=== PATIENT | female | born 2000 | race Caucasian/White ===

== ENCOUNTER 2019-03-27 23:19 | Emergency (ER) | payer OTHER ==
[2019-03-27] MEDS ORDERED: PROP1VIA IV (23:31)
[2019-03-27] MEDS ORDERED: CITA-155 PO (23:31)
--- NOTE | 2019-03-27 23:31 | ER Report ---
History and Physical Time Seen By MD: 23:31 Hx. of Stated Complaint: BACK AND ABDOMINAL PAIN SINCE YESTERDAY. PT RUBS FLANK AREA WHEN ASKED ABOUT THE PAIN. NO HX OF UTI OR KIDNEY STONES HPI/ROS CHIEF COMPLAINT: Back and abdominal pain HISTORY OF PRESENT ILLNESS: This is a 18-year-old female. She's been having some pain that started yesterday, mainly in her back and flanks, now seems to radiate into her abdomen somewhat worse in the right lower back and right abdomen. The only thing that seemed to make the pain better was a warm blanket. Any movement seems to make it worse. Does not seem to change with eating or drinking although she has poor appetite. No nausea or vomiting. Normal bowels without diarrhea, blood or melena. Denies any dysuria, frequency, or urgency. Last menstrual cycle was about a week or 2 ago, normal for her. She is feeling some diffuse achiness and hypersensitivity of her skin throughout her body with all this. She does have a fever here but has not noted any fevers or chills at home today. No cough or shortness of breath. Denies any chest pain. Sometimes the pain makes it hard for her to catch her breath. No skin rashes. No runny nose, sore throat or upper respiratory symptoms. Allergies: Coded Allergies: No Known Drug Allergies (Unverified , 03/27/19) Home Meds Active Scripts Ondansetron 4 Mg Odt (ONDANSETRON 4 MG ODT) 4 Mg Tab.rapdis, 4 MG PO Q6H PRN for NAUSEA/VOMITING, #10 TAB 0 Refills Prov:LAW HUBER MD 03/28/19 Hydrocodone Bit/Acetaminophen (HYDROCODON-ACETAMINOPHEN 5-325) 1 Each Tablet, 1 EACH PO Q4H PRN for PAIN, #8 TAB 0 Refills Prov:LAW HUBER MD 03/28/19 Reported Medications Citalopram Hydrobromide (CELEXA) 10 Mg Tablet, 10 MG PO QDAY, #5 TAB 03/27/19 Propranolol Hcl (PROPRANOLOL HCL) 1 Mg/1 Ml Vial, 1 MG IV, VIAL 03/27/19 Reviewed Nurses Notes: Yes Constitutional Vital Sign - Last 24 Hours 03/27/19 03/27/19 03/27/19 03/27/19 23:19 23:24 23:28 23:29 Temp 101.2 Pulse ??? 117 119 Resp 12 B/P (MAP) 137/96 137/96 (110) Pulse Ox 91 92 03/27/19 03/27/19 03/27/19 03/27/19 23:30 23:39 23:49 23:59 Pulse 112 104 ??? B/P (MAP) 137/86 (103) Pulse Ox 94 94 03/28/19 03/28/19 03/28/19 03/28/19 00:00 00:05 00:22 00:30 Pulse ??? B/P (MAP) 123/78 (93) ???/??? (1665) O2 Flow Rate 10.0 03/28/19 03/28/19 03/28/19 03/28/19 00:35 00:37 00:50 01:00 Pulse ??? 103 B/P (MAP) 124/80 (95) 123/82 (96) Pulse Ox 89 03/28/19 03/28/19 01:05 01:20 Pulse ??? 91 Pulse Ox 91 94 Intake and Output 03/27/19 03/27/19 03/28/19 15:00 23:00 07:00 Intake Total 1000 ml Balance 1000 ml Physical Exam General Appearance: The patient is alert. No acute distress. Nontoxic in appearance. Eyes: Pupils are equal, round. No pallor, injection or icterus. ENT: Mucous membranes are moist. Normal oral mucosa. Posterior oropharynx is normal. Neck: Supple and non tender. Respiratory: Lungs are clear to auscultation. Cardiovascular: Regular rate and rhythm. No murmurs, gallops or rubs. Normal capillary refill. Gastrointestinal: Abdomen is soft, discomfort throughout somewhat worse in the right lower abdomen. Nondistended. No rebound or guarding. No masses or organomegaly. Normal active bowel sounds. No costovertebral angle tenderness with percussion, but does have pain with palpation throughout the back, worse across the lumbar spine, somewhat worse on the right side. Neurological: Alert and oriented x3. No focal neurologic deficits Skin: Warm and dry. No rashes. DIFFERENTIAL DIAGNOSIS: After history and physical exam, differential diagnosis was considered for abdominal pain including but not limited to appendicitis, colitis, gastroenteritis, and urinary tract infection. Less likely cholecystitis. Medical Decision Making Data Points Result Diagram: 03/27/19 2359 03/27/19 2359 Laboratory Hematology Test 03/27/19 23:24 03/27/19 23:59 Urine Color Yellow Urine Clarity Clear Urine pH 5.0 pH (4.8-9.5) Urine Specific [place] 1.027 Urine Protein Negative mg/dL (NEGATIVE) Urine Glucose (UA) Negative mg/dL (NEGATIVE) Urine Ketones Negative mg/dL (NEGATIVE) Urine Blood Negative (NEGATIVE) Urine Nitrite Negative (NEGATIVE) Urine Bilirubin Negative (NEGATIVE) Urine Urobilinogen 2.0 mg/dL (0.2-1.9) Urine Leukocyte Esterase Negative (NEGATIVE) Urine RBC 3 /HPF (0-2/HPF) Urine WBC 4 /HPF (0-5/HPF) Urine Squamous Epithelial Cells Many /LPF (</=FEW) Urine Bacteria Few /HPF (NONE-FEW) Urine Mucus Few /HPF (NONE-FEW) Red Blood Count 4.97 M/uL (4.17-5.56) Mean Corpuscular Volume 84.5 fL (80.0-96.0) Mean Corpuscular Hemoglobin 28.8 pg (26.0-33.0) Mean Corpuscular Hemoglobin Concent 34.0 g/dL (32.0-36.0) Red Cell Distribution Width 12.7 % (11.5-14.5) Mean Platelet Volume 8.0 fL (7.2-11.1) Neutrophils (%) (Auto) 73.9 % (39.4-72.5) Lymphocytes (%) (Auto) 14.4 % (17.6-49.6) Monocytes (%) (Auto) 10.8 % (4.1-12.4) Eosinophils (%) (Auto) 0.2 % (0.4-6.7) Basophils (%) (Auto) 0.7 % (0.3-1.4) Nucleated RBC Relative Count (auto) 0.1 /100WBC Neutrophils # (Auto) 2.2 K/uL (2.0-7.4) Lymphocytes # (Auto) 0.4 K/uL (1.3-3.6) Monocytes # (Auto) 0.3 K/uL (0.3-1.0) Eosinophils # (Auto) 0.0 K/uL (0.0-0.5) Basophils # (Auto) 0.0 K/uL (0.0-0.1) Nucleated RBC Absolute Count (auto) 0.00 K/uL Sodium Level 137 mmol/L (137-145) Potassium Level 3.6 mmol/L (3.5-5.0) Chloride Level 106 mmol/L (98-107) Carbon Dioxide Level 23 mmol/L (22-31) Blood Urea Nitrogen 9 mg/dl (7-18) Creatinine 0.90 mg/dl (0.52-1.04) Glomerular Filtration Rate Calc > 60.0 Random Glucose 109 mg/dl (75-110) Calcium Level 9.1 mg/dl (8.4-10.2) Total Bilirubin 0.5 mg/dl (0.2-1.3) Aspartate Amino Transf (AST/SGOT) 25 U/L (0-35) Alanine Aminotransferase (ALT/SGPT) 27 U/L (0-56) Alkaline Phosphatase 72 U/L (0-126) Total Protein 7.3 g/dl (6.3-8.2) Albumin 4.3 g/dl (3.5-5.0) Amylase Level 71 U/L (0-110) Lipase 79 U/L (23-300) Human Chorionic Gonadotropin, Qual Negative (NEGATIVE) Chemistry Test 03/27/19 23:24 03/27/19 23:59 Urine Color Yellow Urine Clarity Clear Urine pH 5.0 pH (4.8-9.5) Urine Specific [place] 1.027 Urine Protein Negative mg/dL (NEGATIVE) Urine Glucose (UA) Negative mg/dL (NEGATIVE) Urine Ketones Negative mg/dL (NEGATIVE) Urine Blood Negative (NEGATIVE) Urine Nitrite Negative (NEGATIVE) Urine Bilirubin Negative (NEGATIVE) Urine Urobilinogen 2.0 mg/dL (0.2-1.9) Urine Leukocyte Esterase Negative (NEGATIVE) Urine RBC 3 /HPF (0-2/HPF) Urine WBC 4 /HPF (0-5/HPF) Urine Squamous Epithelial Cells Many /LPF (</=FEW) Urine Bacteria Few /HPF (NONE-FEW) Urine Mucus Few /HPF (NONE-FEW) White Blood Count 3.0 k/uL (4.5-11.0) Red Blood Count 4.97 M/uL (4.17-5.56) Hemoglobin 14.3 g/dL (12.0-16.0) Hematocrit 42.0 % (34.0-47.0) Mean Corpuscular Volume 84.5 fL (80.0-96.0) Mean Corpuscular Hemoglobin 28.8 pg (26.0-33.0) Mean Corpuscular Hemoglobin Concent 34.0 g/dL (32.0-36.0) Red Cell Distribution Width 12.7 % (11.5-14.5) Platelet Count 149 K/uL (150-450) Mean Platelet Volume 8.0 fL (7.2-11.1) Neutrophils (%) (Auto) 73.9 % (39.4-72.5) Lymphocytes (%) (Auto) 14.4 % (17.6-49.6) Monocytes (%) (Auto) 10.8 % (4.1-12.4) Eosinophils (%) (Auto) 0.2 % (0.4-6.7) Basophils (%) (Auto) 0.7 % (0.3-1.4) Nucleated RBC Relative Count (auto) 0.1 /100WBC Neutrophils # (Auto) 2.2 K/uL (2.0-7.4) Lymphocytes # (Auto) 0.4 K/uL (1.3-3.6) Monocytes # (Auto) 0.3 K/uL (0.3-1.0) Eosinophils # (Auto) 0.0 K/uL (0.0-0.5) Basophils # (Auto) 0.0 K/uL (0.0-0.1) Nucleated RBC Absolute Count (auto) 0.00 K/uL Glomerular Filtration Rate Calc > 60.0 Calcium Level 9.1 mg/dl (8.4-10.2) Total Bilirubin 0.5 mg/dl (0.2-1.3) Aspartate Amino Transf (AST/SGOT) 25 U/L (0-35) Alanine Aminotransferase (ALT/SGPT) 27 U/L (0-56) Alkaline Phosphatase 72 U/L (0-126) Total Protein 7.3 g/dl (6.3-8.2) Albumin 4.3 g/dl (3.5-5.0) Amylase Level 71 U/L (0-110) Lipase 79 U/L (23-300) Human Chorionic Gonadotropin, Qual Negative (NEGATIVE) Urinalysis Test 03/27/19 23:24 Urine Color Yellow Urine Clarity Clear Urine pH 5.0 pH (4.8-9.5) Urine Specific [place] 1.027 Urine Protein Negative mg/dL (NEGATIVE) Urine Glucose (UA) Negative mg/dL (NEGATIVE) Urine Ketones Negative mg/dL (NEGATIVE) Urine Blood Negative (NEGATIVE) Urine Nitrite Negative (NEGATIVE) Urine Bilirubin Negative (NEGATIVE) Urine Urobilinogen 2.0 mg/dL (0.2-1.9) Urine Leukocyte Esterase Negative (NEGATIVE) Urine RBC 3 /HPF (0-2/HPF) Urine WBC 4 /HPF (0-5/HPF) Urine Squamous Epithelial Cells Many /LPF (</=FEW) Urine Bacteria Few /HPF (NONE-FEW) Urine Mucus Few /HPF (NONE-FEW) EKG/Imaging Imaging Study: CT scan of the abdomen and pelvis with intravenous contrast Indication: Abdominal pain Comparison study: None Contrast used: 75 mL Isovue-370 Technique: Multiple axial images were obtained through the abdomen and pelvis following intravenous administration of iodinated contrast. Coronal and sagittal two-dimensional reconstructions were made from the original data set. One of the following dose optimization techniques was utilized in the performance of this exam: Automated exposure control; adjustment of the mA and/or kV according to the patient's size; or use of an iterative reconstruction technique. Specific details can be referenced in the facility's radiology CT exam operational policy. Findings: Lung bases: Unremarkable Liver: Unremarkable Spleen: Unremarkable Gallbladder: Unremarkable Stomach: Unremarkable Small bowel:The small bowel is unremarkable in appearance. Large bowel: The large bowel is unremarkable in appearance. There is large amount of stool present within the right colon and cecum. A normal appendix is identified. This is curled up adjacent to the right adnexa. Pancreas: Unremarkable Adrenal glands: Unremarkable Kidneys: Unremarkable Retroperitoneum: Unremarkable Pelvis: Unremarkable Bony structures: Unremarkable IMPRESSION: Unremarkable CT scan of the abdomen and pelvis with intravenous contrast. Report Dictated By: Norman Melendez at 03/28/2019 12:54 AM ED Course/Re-evaluation Clinical Indication for ER IV: Hydration, IV Access ED Course Labs are fairly unremarkable other than white count being a little low at 3 with slight left shift. Metabolic panel negative and urinalysis with contamination but no sign of infection. Urine culture will be obtained. CT scan of the abdomen and pelvis was done and shows no acute findings. Patient did feel a little bit better with pain medicine and fluids. Reviewed the findings with her, uncertain exact etiology of the pain but no acute process identified. Likely an enteritis although no specific pattern seen on CT scan as well. Normal-appearing appendix on CT, normal-appearing adnexa and uterus. Normal-appearing kidneys and bladder as well. Reviewed all this with the patient she will watch symptoms for the next 24-48 hours and return if worsening. Decision to Disposition Date: Mar 28, 2019 Decision to Disposition Time: 01:30 Depart Departure Latest Vital Signs Vital Signs Date Time Temp Pulse Resp B/P (MAP) Pulse Ox O2 Delivery O2 Flow Rate FiO2 03/28/19 01:20 91 94 03/28/19 01:00 123/82 (96) 03/28/19 00:22 10.0 03/27/19 23:24 101.2 12 Impression: Primary Impression: Abdominal pain Condition: Improved Disposition: HOME OR SELF-CARE New Scripts Ondansetron 4 Mg Odt (ONDANSETRON 4 MG ODT) 4 Mg Tab.rapdis 4 MG PO Q6H PRN for NAUSEA/VOMITING, #10 TAB 0 Refills Prov: LAW HUBER MD 03/28/19 Hydrocodone Bit/Acetaminophen (HYDROCODON-ACETAMINOPHEN 5-325) 1 Each Tablet 1 EACH PO Q4H PRN for PAIN, #8 TAB 0 Refills Prov: LAW HUBER MD 03/28/19 Patient Instructions: Abdominal Pain (ED) Additional Instructions: We did not find a dangerous cause for abdominal pain tonight. CT scan, ultrasound and labs were unremarkable. We suspect that this could be a viral process causing cramping pain. Rest and increase fluid intake over the next 24 hours. Stick with a bland diet. If pain persists, you should follow-up with your regular doctor this week to discuss further evaluation. If pain worsens or you develop fevers, or nausea/vomiting, you should return to the ER for re-evaluation. Problem Qualifiers Primary Impression: Abdominal pain Abdominal location: generalized Qualified Codes: R10.84 - Generalized abdominal pain LAW HUBER MD Mar 27, 2019 23:31
[2019-03-27] MEDS ORDERED: MORPHINE 2 MG/ML SYR IVP ONE (23:45)
[2019-03-27] MEDS ORDERED: ONDANSETRON 4 MG/2 ML VIAL IVP ONE (23:45)
[2019-03-27] MEDS ORDERED: NS(*) 0.9% 1000 ML BAG 1,000 ML IV ONE (23:45)
[2019-03-27] MEDS ORDERED: IOPAMIDOL 76% 150 ML INFUS BTL 150 ML ONE (23:59)
[2019-03-28 00:32] LABS: PLATELET COUNT, AUTOMATED 149 K/uL (150-450)
[2019-03-28 01:00] VITALS: BP 123/82
--- NOTE | 2019-03-28 01:09 | RADIOLOGY IMAGING REPORT ---
[place] [facility] [place] NAME: Marva Trujillo : 2000 MR: [id number] V: [id number] EXAM DATE: [id number] ORDERING PHYSICIAN: LAW HUBER TECHNOLOGIST: Location: Patient: Marva Trujillo : 2000 Visit/Account:[id number] Date of Sevice: 03/27/2019 Study: CT scan of the abdomen and pelvis with intravenous contrast Indication: Abdominal pain Comparison study: None Contrast used: 75 mL Isovue-370 Technique: Multiple axial images were obtained through the abdomen and pelvis following intravenous a dministration of iodinated contrast. Coronal and sagittal two-dimensional reconstructions were made f rom the original data set. One of the following dose optimization techniques was utilized in the performance of this exam: Autom ated exposure control; adjustment of the mA and/or kV according to the patient's size; or use of an i terative reconstruction technique. Specific details can be referenced in the facility's radiology C T exam operational policy. Findings: Lung bases: Unremarkable Liver: Unremarkable Spleen: Unremarkable Gallbladder: Unremarkable Stomach: Unremarkable Small bowel:The small bowel is unremarkable in appearance. Large bowel: The large bowel is unremarkable in appearance. There is large amount of stool present wi thin the right colon and cecum. A normal appendix is identified. This is curled up adjacent to the right adnexa. Pancreas: Unremarkable Adrenal glands: Unremarkable Kidneys: Unremarkable Retroperitoneum: Unremarkable Pelvis: Unremarkable Bony structures: Unremarkable IMPRESSION: Unremarkable CT scan of the abdomen and pelvis with intravenous contrast. Report Dictated By: Norman Melendez at 03/28/2019 12:54 AM Report E-Signed By: Norman Melendez at 03/28/2019 1:05 AM WSN:[id number]
[2019-03-28] MEDS ORDERED: ACET/HYDROC 5/325MG TH ER ONLY 2 TAB/BOTTLE PO ONE (01:30)
[2019-03-28] MEDS ORDERED: ONDANSETRON 4 MG ODT TH SL ONE (01:30)
[2019-03-28] MEDS ORDERED: LOR5/325 PO (01:33)
[2019-03-28] MEDS ORDERED: ONDA4TAB9 PO (01:33)
== END 2019-03-28 01:37 | disposition home or self-care (01) ==
LOC: ER 23:39
DX: R10.84 Generalized abdominal pain (principal)
CPT/HCPCS: 74177; 81001; 82150; 83690; 84703; 85025; 87088; 96361; 96374; 96375; 99284; J2270; J2405; J7030; Q9967; S0119; 82040; 82247; 82310; 82374; 82435; 82565; 82947; 84075; 84132; 84155; 84295; 84450; 84460; 84520